=== PATIENT | male | born 1990 | race Caucasian/White ===

== ENCOUNTER 2019-02-11 12:13 | Emergency (ER) | payer OTHER ==
[~2019-02-11] VITALS: Ht 177.8 cm; Wt 113.9 kg
[2019-02-11 12:21] VITALS: Ht 177.8 cm; Wt 113.9 kg
[2019-02-11 16:42] VITALS: BP 130/84
== END 2019-02-11 16:20 | disposition home or self-care (01) ==
LOC: ED 12:13
DX: S89.91XA Unspecified injury of right lower leg, initial encounter (principal); W01.0XXA Fall on same level from slipping, tripping and stumbling without subsequent striking against object, initial encounter; Y93.89 Activity, other specified; Y92.89 Other specified places as the place of occurrence of the external cause; Y99.8 Other external cause status